=== PATIENT | male | born 1965 | race Caucasian/White ===

== ENCOUNTER 2017-01-28 11:20 | Day surgery (SDC) | payer BC ==
[~2017-01-28] VITALS: Ht 170.2 cm; Wt 72.7 kg
[2017-01-28] MEDS ORDERED: XANAX1 MG PO (12:14)
[2017-01-28] MEDS ORDERED: ZOLOFT25 MG PO (12:15)
[2017-01-28] MEDS ORDERED: AMBIEN10 MG PO (12:15)
[2017-01-28] MEDS ORDERED: SINGULAIR10 MG (12:15)
[2017-01-28] MEDS ORDERED: PROVENTIL HFA6.7 GM INH (12:15)
[2017-01-28] MEDS ORDERED: ZANAFLEX4 MG PO (12:16)
[2017-01-28 12:22] VITALS: BP 129/81; Ht 170.2 cm; Wt 72.7 kg
--- NOTE | 2017-01-29 09:43 | OP ---
PATIENT NAME: TOYA ELDER MEDICAL RECORD: [id number] :67 LOCATION:D.OPS ADMISSION DATE: SURGEON: ALEXI LOPEZ MD DATE OF OPERATION: 01/28/2017 PREOPERATIVE DIAGNOSIS: Desires screening colonoscopy. POSTOPERATIVE DIAGNOSES: Desires screening colonoscopy with 2 colon polyps, both sessile. The most proximal polyp was a semi-pedunculated polyp and was 1.7 cm in length. The other was a sessile polyp and was 9-mm in length. PROCEDURES: 1. Total colonoscopy to cecum. 2. Hot biopsy forceps polypectomies times 2. SURGEON: Alexi Lopez MD AREA FIELD WORKER: None. BLOOD LOSS: Minimal. ANESTHESIA: IV sedation. COMPLICATIONS: None. Reason for the anesthesia staff being present during the procedure includes anxiety regarding the procedure. ENDOSCOPIC COURSE: The patient was conveyed to the endoscopy suite electively on 01/28/2017. IV sedation was induced by the anesthesia staff. The patient was placed in the Aly position. A digital rectal examination was performed. It was normal. A colonoscope was inserted through the anus. It was easily advanced to the cecum. The prep was adequate. I slowly withdrew the endoscope. I irrigated and aspirated extensively. I dragged the folds. A combination of direct imaging as well as narrow band imaging utilized to examine the colonic barcenas. A retroflexed view was obtained in the rectum. I then unretroflexed the scope and removed it under direct vision. I will see the patient in my office in 2-3 weeks. We will review the results of the biopsies at that time. It is very likely the patient will require surveillance lower endoscopies in the future. TRANSINT:[id number] Voice Confirmation ID: [id number] DOCUMENT ID: [id number] ALEXI LOPEZ MD at 0943 CC: DAVID HUGHES DO [id number] DICTATION DATE: 01/28/17 1454 DIRECTOR FUNERAL: 01/28/17 2131 [facility] 01/28/17 [place] [id number]
--- NOTE | 2017-01-29 09:43 | HP ---
PATIENT: TOYA ELDER MEDICAL RECORD: [id number] ACCOUNT: [id number] LOCATION:[facility] : 67 ADMISSION DATE: 01/28/17 HISTORY AND PHYSICAL EXAMINATION CHIEF COMPLAINT: Here for colonoscopy. HISTORY OF PRESENT ILLNESS: The patient is here for screening colonoscopy. He has never had a colonoscopy. No abdominal pain. No abdominal tenderness. No rectal bleeding. The Fontana's chorea runs in the patient's family. The patient does not have it and has been tested for it, however. ALLERGIES: No known drug allergies. HOME MEDICATIONS: Albuterol, Ambien, Xanax, Zanaflex, Zoloft. SOCIAL HISTORY: Nonsmoker. PAST MEDICAL AND SURGICAL HISTORY: Neck and shoulder pain, asthma, depression, right carpal tunnel release, hernia repair, skin cancer removals. REVIEW OF SYSTEMS: Negative for CVA or seizures. Negative for diabetes or thyroid problems. PHYSICAL EXAMINATION: GENERAL: The patient does not appear acutely ill. He does not appear chronically ill. VITAL SIGNS: Reviewed. HEAD: External ears appear normal. EYES: Extraocular movements are intact. NECK: Trachea is midline. CHEST: No intercostal retractions. PULMONARY: Nonlabored. No stridor. EXTREMITIES: No peripheral cyanosis. IMPRESSION: Desires screening colonoscopy. PLAN: Screening colonoscopy. TRANSINT:[id number] Voice Confirmation ID: [id number] DOCUMENT ID: [id number] PAULINE LOPEZ MD at 0943 CC: [id number] DICTATION DATE: 01/28/17 1417 CERTIFIED NOVELL ENGINEER: 01/28/17 1731 [facility] 01/28/17 [place] [id number]
== END 2017-01-28 16:20 | disposition home or self-care (01) ==
LOC: D.OPS 11:20
DX: Z12.11 Encounter for screening for malignant neoplasm of colon (principal); J45.909 Unspecified asthma, uncomplicated; F32.9 Major depressive disorder, single episode, unspecified; Z01.812 Encounter for preprocedural laboratory examination; K63.5 Polyp of colon

== ENCOUNTER 2018-05-29 07:35 | Day surgery (SDC) | payer BC ==
[~2018-05-29] VITALS: Ht 170.2 cm; Wt 70.3 kg
--- NOTE | ~2018-05-29 | OP ---
PATIENT NAME: TOYA ELDER MEDICAL RECORD: [id number] :67 LOCATION:[facility] ADMISSION DATE: SURGEON: VINNIE UREÑA MD DATE OF OPERATION: 05/29/2018 PREOPERATIVE DIAGNOSES: Nasal obstruction, septal deviation, turbinate hypertrophy. POSTOPERATIVE DIAGNOSES: Nasal obstruction, septal deviation, turbinate hypertrophy. PROCEDURES: Septoplasty and bilateral inferior turbinate reduction. SURGEON: Vinnie Ureña MD ANESTHESIA: General orotracheal. BLOOD LOSS: 2 cc. SPECIMENS: None. SPLINTS: Coombs splints bilaterally. COMPLICATIONS: None. DISPOSITION: Recovery stable. DESCRIPTION OF PROCEDURE: He was brought to the operating room and placed in supine position, sedated and intubated by anesthesia. Eyes were taped. Both sides of the nose were examined using a headlight and nasal speculum. The septum, floor of the nose, and inferior turbinates were injected with a total of 1-1/2 cc of 1% lidocaine with 1:100,000 epinephrine. Three Afrin pledgets were placed on each side of the nose. He had been decongested with Afrin preoperatively. He was positioned, prepped and draped in the usual fashion. Then all the Afrin pledgets were removed. A right-sided Payette incision was made, ipsilateral mucoperichondrial flap was elevated with a large bony spur inferiorly on the right side. Bony cartilaginous junction was disarticulated with a Mary and then a posterior contralateral mucoperichondrial flap was elevated to isolate bony spur. A cut was made with 6-inch straight Mayos above and below that and that was removed. Then, a Hoke was used to divide the septum from the bony spur anteriorly. Chisel was used to remove the anterior bony spur. Then, a left-sided incision was made along the edge of the cartilage. The nasal septum was deviated into the middle of the nostril on that side. Redundant cartilage was removed at the anterior maxillary spine and this freed up the septum of pocket between the medial and lower lateral cartilages and move the septum into the midline there. That incision was closed with interrupted 3-0 chromic. Then both the inferior turbinates were medialized with the freer. A Gruenwald was used to take down the inferior redundant portion. Suction cautery on a setting of 30 was used to stop any bleeding and they were both outfractured with a [place] elevator. Then, I evaluated the septum, which was straight and intact. The right-sided Erik incision was closed with interrupted 4-0 chromic. The nasopharynx was suctioned. The field was clean and dry. Coombs splints were placed bilaterally with some mupirocin ointment and sutured to the anterior membranous septum with a 2-0 Prolene on a Baron needle. He was awakened, extubated, and transported to recovery in good condition. No OPERATIVE REPORT [id number] TOYA ELDER complications. TRANSINT:[id number] Voice Confirmation ID: [id number] DOCUMENT ID: [id number] VINNIE UREÑA MD at 1731 CC: [id number] DICTATION DATE: 05/29/18 1041 LABELING ASSOCIATE: 05/29/18 1101 [facility] 05/29/18 [place] [id number] [place] [address]
--- NOTE | ~2018-05-29 | HP ---
PATIENT: TOYA MYERS MEDICAL RECORD: [id number] ACCOUNT: [id number] LOCATION:[facility] : 67 ADMISSION DATE: 05/29/18 PCP: DAVID LENTZ MD HISTORY AND PHYSICAL EXAMINATION PREOPERATIVE HISTORY AND PHYSICAL HISTORY OF PRESENT ILLNESS: Mr. Myers is a 52-year-old male with chronic refractory trouble with nasal obstruction. He is being admitted for septoplasty and bilateral inferior turbinate reduction. PAST MEDICAL HISTORY: Includes reactive airway disease. PAST SURGICAL HISTORY: Includes carpal tunnel surgery in 1992 and hernia repair in 1989. CURRENT MEDICATIONS: Singulair, zolpidem, Xanax, ProAir, Advair. ALLERGIES: No known drug allergies. PHYSICAL EXAMINATION: GENERAL: Healthy appearing. Normal voice, developmentally normal. FACE: Normal, symmetric, no lesions. EYES: Sclerae and conjunctivae are normal. EARS: Canals and TMs are normal. NOSE: He has deviation of the tip of the nose as well as severe septal deviation, large septal spur, and large inferior turbinates. ORAL CAVITY AND OROPHARYNX: Tongue protrudes in the midline. Pharynx is normal. NECK: No masses, no adenopathy. CHEST: Clear. CARDIOVASCULAR: Regular rate and rhythm, no murmur. EXTREMITIES: Normal. IMPRESSION: Nasal obstruction, septal deviation, and turbinate hypertrophy, refractory with medical management. PLAN: Septoplasty and bilateral inferior turbinate reduction. TRANSINT:[id number] Voice Confirmation ID: [id number] DOCUMENT ID: [id number] VINNIE MUHAMMAD MD at 1731 CC: [id number] DICTATION DATE: 05/27/18 1548 SEISMOLOGY TECHNICAL OFFICER: 05/27/18 1622 [facility] 05/29/18 [facility] [address] [place] [address]
[~2018-05-29 07:35] MED LIST: AMBIEN10 MG PO; PROVENTIL HFA6.7 GM INH; SINGULAIR10 MG; SINGULAIR10 MG PO; XANAX1 MG PO; ZANAFLEX4 MG PO; ZOLOFT25 MG PO
[2018-05-29 08:45] VITALS: BP 126/83; Ht 170.2 cm; Wt 70.3 kg
== END 2018-05-29 12:20 | disposition home or self-care (01) ==
LOC: D.OPS 07:35
DX: J34.2 Deviated nasal septum (principal); J34.3 Hypertrophy of nasal turbinates; Z01.812 Encounter for preprocedural laboratory examination; J45.909 Unspecified asthma, uncomplicated; Z79.899 Other long term (current) drug therapy

== ENCOUNTER 2019-03-09 05:32 | Day surgery (SDC) | payer BC ==
[2019-03-09 06:32] VITALS: BP 140/76; BMI 24.0
--- NOTE | 2019-03-09 10:30 | NUR ---
PT DC INSTRUCTIONS REVIEWED AT THIS TIME PT VERBALIZES UNDERSTADING AND AGREES. IV REMOVED AT THIS TIME, INTACT, NO REDNESS OR SWELLING NOTED AT SITE.
--- NOTE | 2019-03-09 10:36 | NUR ---
PT LEAVING OPS AT THIS TIMEUSMANA
--- NOTE | 2019-03-09 12:41 | HP ---
PATIENT: TOYA ELDER MEDICAL RECORD: [id number] ACCOUNT: [id number] LOCATION:[facility] : 67 ADMISSION DATE: 03/09/19 PCP: VASILIY LENTZ MD HISTORY AND PHYSICAL EXAMINATION CHIEF COMPLAINT: History of colon polyps. HISTORY OF PRESENT ILLNESS: The patient underwent a colonoscopy back in 2017 and was found to have a tubular adenoma at 25 cm. He is here for surveillance colonoscopy. He has had no rectal bleeding. No abdominal pain. HOME MEDICATIONS: Please see the nursing list. ALLERGIES: No known drug allergies. SOCIAL HISTORY: Nonsmoker. PAST MEDICAL AND SURGICAL HISTORY: Asthma, history of septoplasty, history of carpal tunnel release, history of herniorrhaphy, history of colon polyps. REVIEW OF SYSTEMS: Negative for CVA or seizures. Negative for diabetes or thyroid problems. PHYSICAL EXAMINATION: GENERAL: The patient does not appear acutely ill. He does not appear chronically ill. VITAL SIGNS: Reviewed. EARS: External ears appear normal. EYES: Extraocular movements are intact. NECK: Trachea is midline. CHEST: No intercostal retractions. PULMONARY: Nonlabored, no stridor. IMPRESSION: History of colon polyps for surveillance colonoscopy. PLAN: Will be surveillance colonoscopy. TRANSINT:[id number] Voice Confirmation ID: [id number] DOCUMENT ID: [id number] PAULINE LOPEZ MD at 1241 CC: DAVID LENTZ [id number] DICTATION DATE: 03/09/19 0908 IRRIGATION EQUIPMENT MECHANIC: 03/09/19 0921 [facility] 03/09/19 [place] [id number]
--- NOTE | 2019-03-09 12:41 | OP ---
PATIENT NAME: TOYA ELDER MEDICAL RECORD: [id number] :67 LOCATION:D.OPS ADMISSION DATE: SURGEON: ALEXI LOPEZ MD DATE OF OPERATION: 03/09/2019 PREOPERATIVE DIAGNOSIS: History of colon polyps, in need of surveillance colonoscopy. POSTOPERATIVE DIAGNOSES: History of colon polyps, in need of surveillance colonoscopy with no evidence of new colonic polyps or masses. PROCEDURES: Total colonoscopy to cecum. SURGEON: Alexi Lopez MD POURER OFF: None. BLOOD LOSS: Minimal. ANESTHESIA: IV sedation. COMPLICATIONS: None. The reason for the anesthesia staff being present during the procedure includes anxiety regarding the procedure. ENDOSCOPIC COURSE: The patient was conveyed to endoscopy suite electively on 03/09/2019. IV sedation was induced by the anesthesia staff. The patient was placed in the Aly position. A digital rectal examination was performed. The prostate was symmetric and without nodules. A colonoscope was inserted through the anus. It was easily advanced to the cecum. I then intubated the ileum. It was normal as well. The prep was excellent. I slowly withdrew the endoscope. I irrigated and aspirated extensively. The pullback was greater than a 13-minute pullback. I dragged the folds. A retroflexed view was obtained in the rectum. I then unretroflexed the scope and removed it under direct vision. I will plan for the patient's next surveillance colonoscopy to take place in 3 years. TRANSINT:[id number] Voice Confirmation ID: [id number] DOCUMENT ID: [id number] ALEXI LOPEZ MD at 1241 CC: DAVID LENTZ [id number] DICTATION DATE: 03/09/19 0934 DIRECTOR OF SPA AND GUEST EXPERIENCE: 03/09/19 1111 [facility] 03/09/19 [place] [id number] [place] [id number]
== END 2019-03-09 10:36 | disposition home or self-care (01) ==
LOC: D.OPS 05:32
PROVIDERS: ATTEND Surgery
DX: Z86.010 Personal history of colon polyps (principal); Z01.812 Encounter for preprocedural laboratory examination

== ENCOUNTER 2021-03-19 18:58 | Emergency (ER) | payer BC ==
[~2021-03-19] VITALS: Ht 170.2 cm; Wt 73.6 kg
[2021-03-19 19:17] VITALS: Ht 170.2 cm; Wt 73.6 kg
[2021-03-19] MEDS ORDERED: CLEOCIN HCL300 MG PO (20:33)
[2021-03-19] MEDS ORDERED: DICLOFENAC SODI50 MG PO (20:33)
[2021-03-19 22:34] VITALS: BP 151/87
== END 2021-03-19 22:35 | disposition home or self-care (01) ==
LOC: D.ER 18:58
DX: S61.213A Laceration without foreign body of left middle finger without damage to nail, initial encounter (principal); J45.909 Unspecified asthma, uncomplicated; W45.8XXA Other foreign body or object entering through skin, initial encounter; Y93.9 Activity, unspecified; Y92.9 Unspecified place or not applicable